=== PATIENT | female | born 1995 | race Caucasian/White ===

== ENCOUNTER 2018-01-24 08:31 | Day surgery (SDC) | payer SELFPAY ==
[2018-01-21 09:40] VITALS: BMI 27.4
[2018-01-24] MEDS ORDERED: LIDOCAINE HCL 1%, 10 MG/ML (20ML VIAL) ONE (11:02)
[2018-01-24] MEDS ORDERED: EPINEPHrine 1:1,000 1 MG/1 ML - 30ML VIAL (INJECTION) ONE (11:02)
[2018-01-24] MEDS ORDERED: MIDAZOLAM HCL 2 MG/2 ML SINGLE DOSE VIAL ONE (11:05)
[2018-01-24] MEDS ORDERED: SODIUM BICARBONATE 8.4% 50 MEQ/50 ML VIAL ONE (11:18)
[2018-01-24] MEDS ORDERED: ceFAZolin SODIUM 1 GM VIAL ONE (11:55)
[2018-01-24] MEDS ORDERED: PROPOFOL 20 ML ONE ×7 (11:57→15:03)
[2018-01-24] MEDS ORDERED: ONDANSETRON 4 MG/2 ML VIAL ONE ×2 (13:20→16:32)
[2018-01-24] MEDS ORDERED: DEXAMETHASONE SOD PHOSPHATE 4 MG/1 ML VIAL ONE (13:20)
[2018-01-24] MEDS ORDERED: KETOROLAC TROMETHAMINE 30 MG/1 ML VIAL ONE ×2 (13:53→17:01)
[2018-01-24] MEDS ORDERED: ACETAMINOPHEN INJECTION 100 ML IVPB ONE (17:01)
[2018-01-24] MEDS ORDERED: oxyCODONE HCL 5 MG TABLET PO PRN (17:09)
[2018-01-24] MEDS ORDERED: ONDANSETRON 4 MG/2 ML VIAL IVPUSH PRN (17:09)
[2018-01-24] MEDS ORDERED: KETOROLAC TROMETHAMINE 30 MG/1 ML VIAL IVPUSH ONE (17:10)
[2018-01-24] MEDS ORDERED: ACETAMINOPHEN 1000 MG/100 ML VIAL (NON FORMULARY) IVPB ONE (17:10)
[2018-01-24] MEDS ORDERED: oxyCODONE HCL 5 MG TABLET ONE ×2 (18:21→18:31)
[2018-01-24] MEDS ORDERED: IBUPROFEN 400 MG TABLET (FP) PO ONE (19:21)
[2018-01-24] MEDS ORDERED: oxyCODONE HCL 5 MG TABLET PO ONE (20:00)
[2018-01-25] MEDS: IBUPROFEN 400 MG TABLET (FP) PO PRN ×2 (02:13→09:30)
[2018-01-25] MEDS ORDERED: FLUoxetine HCL 20 MG CAPSULE (FP) PO SCH (10:00)
[2018-01-25 17:50] VITALS: BP 103/50; PULSE 97; TEMP 98.7
== END 2018-01-25 21:26 | disposition home or self-care (01) ==
LOC: FASU 08:31 → FM/S 19:56 → FASU 01-25 21:26
PROVIDERS: ATTEND Plastic Surgery
PROC: 0J073ZZ Alteration of Back Subcutaneous Tissue and Fascia, Percutaneous Approach (ICD-10-PCS; 2018-01-24)
PROC: 0J0M3ZZ Alteration of Left Upper Leg Subcutaneous Tissue and Fascia, Percutaneous Approach (ICD-10-PCS; 2018-01-24)
PROC: 0J0L3ZZ Alteration of Right Upper Leg Subcutaneous Tissue and Fascia, Percutaneous Approach (ICD-10-PCS; 2018-01-24)
PROC: 0J083ZZ Alteration of Abdomen Subcutaneous Tissue and Fascia, Percutaneous Approach (ICD-10-PCS; principal; 2018-01-24 12:16)
DX: Z41.1 Encounter for cosmetic surgery (principal); E65 Localized adiposity
CPT/HCPCS: 84703; 94760; J0131